=== PATIENT | female | born 1950 | race Caucasian/White ===

== ENCOUNTER 2019-01-26 10:59 | Emergency (ER) | payer MEDICARE ==
[~2019-01-26] VITALS: Ht 177.8 cm; Wt 63.6 kg
[2019-01-26 11:02] VITALS: BP 147/92
[2019-01-26] MEDS ORDERED: OLAN15TA3 PO (12:52)
[2019-01-26] MEDS ORDERED: FLUO20CA39 PO (12:52)
[2019-01-26] MEDS ORDERED: GABA400C PO (12:52)
[2019-01-26] MEDS ORDERED: BUSP10TA11 PO (12:52)
== END 2019-01-26 12:59 | disposition home or self-care (01) ==
LOC: ER 11:00
DX: R45.851 Suicidal ideations (principal); F41.9 Anxiety disorder, unspecified; Z76.0 Encounter for issue of repeat prescription; Z79.899 Other long term (current) drug therapy
CPT/HCPCS: 99283

== ENCOUNTER 2019-03-11 13:15 | Emergency (ER) | payer MEDICARE ==
[~2019-03-11] VITALS: Ht 177.8 cm; Wt 72.0 kg
[~2019-03-11 13:15] MED LIST: GABA400C PO; OLAN15TA3 PO
[2019-03-11 13:22] VITALS: BP 130/94
--- NOTE | 2019-03-11 13:59 | NUR ---
Pt states she just moved from [place] and cant get her medications filled. Pt takes: Prozac 20mg, 1 tab PO QAM Zyprexa 15mg, 1 tab QHS Buspirone HCL 10mg, 1 tab BID Neurontin 400mg, 1 tab TID
[2019-03-11] MEDS ORDERED: FLUO20CA39 PO (14:24)
[2019-03-11] MEDS ORDERED: OLAN15TA3 PO (14:24)
[2019-03-11] MEDS ORDERED: BUSP10TA11 PO (14:24)
== END 2019-03-11 14:30 | disposition home or self-care (01) ==
LOC: ER 13:15
DX: F32.9 Major depressive disorder, single episode, unspecified (principal); Z76.0 Encounter for issue of repeat prescription; F41.9 Anxiety disorder, unspecified
CPT/HCPCS: 99283

== ENCOUNTER 2021-03-14 01:20 | Emergency (ER) | payer MEDICARE ==
[~2021-03-14] VITALS: Ht 177.8 cm; Wt 100.0 kg
[2021-03-14 02:05] VITALS: BP 129/79
== END 2021-03-14 02:45 | disposition home or self-care (01) ==
LOC: ER 01:20
DX: Z02.89 Encounter for other administrative examinations (principal); I10 Essential (primary) hypertension; F41.9 Anxiety disorder, unspecified; F32.9 Major depressive disorder, single episode, unspecified; Z72.89 Other problems related to lifestyle; Z79.899 Other long term (current) drug therapy
CPT/HCPCS: 99283

== ENCOUNTER 2024-03-03 21:31 | Emergency (ER) | payer MEDICARE, MEDICAID ==
[~2024-03-03] VITALS: Ht 180.3 cm; Wt 95.6 kg
[2024-03-03 21:48] VITALS: BP 185/98; PULSE 98; RESP 18; TEMP 98.2; O2SAT 96
== END 2024-03-04 03:09 | disposition left against medical advice (07) ==
LOC: ER 21:32
DX: F10.90 Alcohol use, unspecified, uncomplicated (principal); Z53.21 Procedure and treatment not carried out due to patient leaving prior to being seen by health care provider